=== PATIENT | female | born 1970 | race Caucasian/White ===

== ENCOUNTER → 2021-01-28 | Outpatient (CLI) | payer BC, OTHER, SELFPAY ==
[~2021-01-28] MED LIST: METHACHOLINE KIT (J7674) INH ONE
--- NOTE | 2021-01-28 10:59 | PFTRPT ---
Site: [facility], [address] [place], [address] ID: [id number] Name: ALDO DARBY Visit Date: 01/28/2021 Second ID: [id number] Referring Doctor: TOBY Villar Marcus, M Reviewing Doctor: Imtiaz Dumont MD Admitting Coordinator: Nicolle GIL RRT Age: 50 : 1970 Sex: Female Race: Height: 65.50 Inches Weight: 188.00 Lbs BSA: 1.94 Order IDs: [id number] Requested Test(s): <RESP-PFT.METH CHAL> Diagnosis: R06.00 puffs of albuterol for post bronchodilator. Review Status: Not Reviewed Pre-Bronch Post-Bronch Pred Actual %Pred Actual %Chng SPIROMETRY FVC (L) 3.76 2.61 69 2.57 -1 FEV1 (L) 2.99 2.15 71 2.12 -1 FEV1/FVC (%) 81 83 101 82 FEF 25% (L/sec) 5.42 4.61 84 4.95 7 FEF 50% (L/sec) 3.97 3.14 79 2.91 -7 FEF 75% (L/sec) 1.48 0.91 61 0.80 -11 FEF 25-75% (L/sec) 2.91 2.30 78 2.11 -8 FEF Max (L/sec) 7.02 4.61 65 5.01 8 FIVC (L) 2.38 2.54 6 FIF 50% (L/sec) 3.89 3.96 101 2.85 -27 FIF Max (L/sec) 3.98 2.94 -26 Expiratory Time (sec) 7.85 7.98 1 Back Extrap Vol (L) 0.13 0.12 -6 Time To FEFmax (sec) 0.150 0.121 -19
== END ==
LOC: M CARPUL 09:41
PROVIDERS: ATTEND Physician Assistant
DX: R06.00 Dyspnea, unspecified (principal)

== ENCOUNTER → 2021-02-27 | Outpatient (CLI) | payer BC | LOC: M SLEEP HO 11:46 | PROVIDERS: ATTEND Physician Assistant | DX: G47.33 Obstructive sleep apnea (adult) (pediatric) (principal); R40.0 Somnolence; R06.83 Snoring ==